=== PATIENT | female | born 1985 | race Caucasian/White ===

== ENCOUNTER 2017-08-07 10:55 | Emergency (ER) | payer OTHER ==
[~2017-08-07] VITALS: Ht 167.6 cm; Wt 65.3 kg
[~2017-08-07 10:55] MED LIST: ALPRAZOLAM0.25 M2 PO; CELEXA20 MG PO; CITALOPRAM HBR40 MG PO; DEPAKOTE125 MG PO; DEPAKOTE500 MG PO; FIORICET 50-301 EACH PO; MOTRIN800 MG PO; PERCOCET 5/31 TABLET PO; PROAIR HFA8.5 GM IH; TRAMADOL HCL50 MG PO
[2017-08-07 11:29] LABS: HEMATOCRIT 40.1 % (36.0-46.0); HEMOGLOBIN 13.8 G/DL (11.9-15.5); MCH 31.4 PG (29.0-34.0); MCHC 34.4 G/DL (30.0-36.0); MCV 91.3 FL (83-99); PLATELET COUNT 285 K/uL (156-360); RBC DIS.WIDTH-CV 11.9 % (11.8-14.6); RBC DIS.WIDTH-SD 39.9 % (39-53); RED BLOOD COUNT 4.39 M/uL (3.80-5.20); WHITE BLOOD COUNT 9.3 K/uL (4.1-10.2)
[2017-08-07 11:49] LABS: APPEARANCE SL.HAZY ((CLEAR)); BILIRUBIN NEGATIVE; BLOOD NEGATIVE; COLOR YELLOW ((YELLOW)); GLUCOSE (STRIP) NEGATIVE; KETONES NEGATIVE; LEUKOCYTES NEGATIVE; NITRITE NEGATIVE; PROTEIN (STRIP) NEGATIVE; SPECIFIC GRAVITY 1.021 (1.000-1.030); UROBILINOGEN 0.2 MG/DL (0.2-1.0)
[2017-08-07 11:50] LABS: QUANTITATIVE HCG < 4.0 MIU/ML
[2017-08-07 12:03] LABS: BACTERIA NONE SEEN /HPF; EPITHELIAL CELLS 2+ /HPF; HYALINE CASTS 0-5 /LPF; MUCUS TRACE /LPF; RED BLOOD CELLS 0-5 /HPF (0-5); UCUL ADDED? NO; WHITE BLOOD CELLS 0-5 /HPF (0-5)
[2017-08-07 12:23] LABS: ALBUMIN 4.3 G/DL (3.2-4.8); ALKALINE PHOSPHATASE 58 IU/L (3-129); ALT (GPT) 21 IU/L (3-49); AST (GOT) 23 IU/L (2-34); CHLORIDE 105 MEQ/L (99-109); CREATININE 0.7 MG/DL (0.6-1.3); GFR ESTIMATE (CALCULATED) > 59 mL/min/; GLUCOSE 107 mg/dL (70-99); POTASSIUM 3.7 MEQ/L (3.7-5.4); SODIUM 138 MEQ/L (136-147); TOTAL BILIRUBIN 0.4 MG/DL (0.0-1.0); TOTAL PROTEIN 7.3 G/DL (6.4-8.3); UREA NITROGEN (BUN) 9 mg/dL (9-23)
[2017-08-07 12:32] LABS: LIPASE 8 U/L (1.0-51.0)
[2017-08-07] MEDS ORDERED: BENTYL20 MG PO (13:06)
[2017-08-07] MEDS ORDERED: OMEPRAZOLE40 M1 PO (13:06)
[2017-08-07] MEDS ORDERED: MIRALAX119 GM PO (13:06)
[2017-08-07 13:36] VITALS: BP 119/82
== END 2017-08-07 13:35 | disposition home or self-care (01) ==
LOC: EME 10:55
DX: K29.70 Gastritis, unspecified, without bleeding (principal); K92.1 Melena; T39.315A Adverse effect of propionic acid derivatives, initial encounter; K59.00 Constipation, unspecified; F17.200 Nicotine dependence, unspecified, uncomplicated; J45.909 Unspecified asthma, uncomplicated; K21.9 Gastro-esophageal reflux disease without esophagitis; Z88.5 Allergy status to narcotic agent; Z88.6 Allergy status to analgesic agent
CPT/HCPCS: 74177; 80053; 81003; 83690; 84702; 85027; 99281; 99284